=== PATIENT | male | born 1995 | race Caucasian/White ===

== ENCOUNTER 2022-04-18 07:35 | Emergency (ER) | payer OTHER ==
[~2022-04-18] VITALS: Ht 180.3 cm; Wt 101.1 kg
[2022-04-18] MEDS ORDERED: ONDANSETRON 4MG 2ML VIAL IV ONE (08:20)
[2022-04-18] MEDS ORDERED: MORPHINE 4 MG/ML 1ML VIAL/SYRINGE IV ONE (08:20)
[2022-04-18] MEDS ORDERED: NS 1,000 ML IV ONE (08:20)
[2022-04-18] MEDS ORDERED: ceFAZolin SOD 2 GM in IV 1 EA IV ONE (09:05)
[2022-04-18] MEDS ORDERED: LIDOCAINE 2% MDV 20ML VIAL SC ONE (10:00)
[2022-04-18] MEDS ORDERED: PERCOCET 5MG/325MG TAB PO ONE (10:10)
[2022-04-18] MEDS ORDERED: BACITRACIN OINTMENT 30GM TUBE TOP ONE (10:10)
[2022-04-18 10:23] VITALS: BP 110/60
[2022-04-18] MEDS ORDERED: PERC5TAB12 PO (10:32)
[2022-04-18] MEDS ORDERED: MIRA3350 PO (10:32)
[2022-04-18] MEDS ORDERED: CEPH500C PO (10:32)
[2022-04-18] MEDS ORDERED: CYCL5TAB PO (16:12)
[2022-04-18] MEDS ORDERED: ACET1TAB55 PO (16:12)
[2022-04-18] MEDS ORDERED: NAPR-837 PO (16:12)
[2022-04-18] MEDS ORDERED: OXYC1TAB23 PO (19:20)
== END 2022-04-18 10:57 | disposition home or self-care (01) ==
LOC: M ED 07:35
DX: S68.611A Complete traumatic transphalangeal amputation of left index finger, initial encounter (principal); W23.0XXA Caught, crushed, jammed, or pinched between moving objects, initial encounter; Y99.0 Civilian activity done for income or pay; F17.200 Nicotine dependence, unspecified, uncomplicated; Z91.040 Latex allergy status
CPT/HCPCS: 73130; 87635; 96365; 96375; 99284; J0131; J0690; J1100; J1885; J2250; J2270; J2405; J3010

== ENCOUNTER 2022-04-18 15:16 | Day surgery (SDC) | payer OTHER ==
[~2022-04-18] VITALS: Ht 180.3 cm; Wt 101.1 kg
[~2022-04-18 15:16] MED LIST: BUPIVACAINE HCL 0.25% 30ML VIAL As Ordered ONE; CEPH500C PO; MIRA3350 PO; PERC5TAB12 PO; POLYSPORIN TOPICAL OINTMENT 15GM As Ordered ONE
[2022-04-18] MEDS ORDERED: CYCL5TAB PO (16:12)
[2022-04-18] MEDS ORDERED: ACET1TAB55 PO (16:12)
[2022-04-18] MEDS ORDERED: NAPR-837 PO (16:12)
[2022-04-18] MEDS: MORPHINE 2 MG/ML 1ML VIAL IV PRN ×2 (16:41→17:57)
[2022-04-18] MEDS ORDERED: MIDAZOLAM INJ 2MG/2ML VIAL (J2250 PER 1MG) As Ordered ONE (18:27)
[2022-04-18] MEDS ORDERED: KETOROLAC 60MG 2ML VIAL As Ordered ONE (18:27)
[2022-04-18] MEDS ORDERED: ONDANSETRON 4MG 2ML VIAL As Ordered ONE (18:27)
[2022-04-18] MEDS ORDERED: LIDOCAINE 2% 100MG/5ML SDV (FOR ANES.) As Ordered ONE (18:27)
[2022-04-18] MEDS ORDERED: propofoL 200 MG/20 ML VIAL As Ordered ONE (18:27)
[2022-04-18] MEDS ORDERED: fentaNYL 100 MCG/2 ML INJECTION As Ordered ONE (18:27)
[2022-04-18] MEDS ORDERED: SUGAMMADEX SODIUM 500 MG/5 ML VIAL (BRIDION) As Ordered ONE (18:27)
[2022-04-18] MEDS ORDERED: ROCURONIUM BROMIDE 50 MG/5 ML VIAL As Ordered ONE (18:27)
[2022-04-18] MEDS ORDERED: dexameTHASONE 4 MG/ML 1ML VIAL (J1100 PER 1MG) As Ordered ONE (18:27)
[2022-04-18] MEDS ORDERED: ceFAZolin 1GM VIAL (J0690 PER 500MG) As Ordered ONE (18:32)
[2022-04-18] MEDS ORDERED: ceFAZolin 2 GM/D5W 50 ML IV BAG (J0690 PER 500MG) As Ordered ONE (18:33)
[2022-04-18] MEDS ORDERED: ACETAMINOPHEN 1000MG 100ML IV BTL (OFIRMEV) (J0131 PER 10MG) As Ordered ONE (18:55)
[2022-04-18] MEDS ORDERED: ONDANSETRON 4MG 2ML VIAL IV PRN (19:05)
[2022-04-18] MEDS ORDERED: LR 1,000 ML IV SCH (19:05)
[2022-04-18] MEDS ORDERED: MORPHINE 2 MG/ML 1ML VIAL IV PRN (19:05)
[2022-04-18] MEDS ORDERED: fentaNYL 100 MCG/2 ML INJECTION IV PRN (19:05)
[2022-04-18] MEDS ORDERED: oxyCODONE 5MG TAB PO PRN (19:05)
[2022-04-18] MEDS ORDERED: OXYC1TAB23 PO (19:20)
[2022-04-18 20:45] VITALS: BP 103/63
== END 2022-04-18 21:00 | disposition home or self-care (01) ==
LOC: M SDC 15:16
PROVIDERS: ATTEND Orthopaedic Surgery Hand Surgery
DX: S68.121A Partial traumatic metacarpophalangeal amputation of left index finger, initial encounter (principal); W20.8XXA Other cause of strike by thrown, projected or falling object, initial encounter; Y92.138 Other place on military base as the place of occurrence of the external cause; Y99.1 Military activity